=== PATIENT | male | born 1950 | race Caucasian/White ===

== ENCOUNTER 2019-05-19 03:25 | Emergency (ER) | payer MEDICARE, MEDICAID ==
[~2019-05-19] VITALS: Ht 170.2 cm; Wt 90.9 kg
[2019-05-19 05:47] VITALS: BP 142/94
[2019-05-19] MEDS ORDERED: proCHLORperazine 10mg tablet PO ONE (05:55)
[2019-05-19] MEDS ORDERED: SUMAtriptan succ. 6 MG/0.5ml vial SQ PRN (05:55)
--- NOTE | 2019-05-19 06:04 | NUR ---
PT GIVEN COMPAZINE TABLET AND IMATREX SQ INJECTION.
== END 2019-05-19 06:48 | disposition home or self-care (01) ==
LOC: ER 03:27
DX: G43.909 Migraine, unspecified, not intractable, without status migrainosus (principal); E78.00 Pure hypercholesterolemia, unspecified; I10 Essential (primary) hypertension; Z59.0 Homelessness
CPT/HCPCS: 96372; 99283; J3030; Q0164